=== PATIENT | female | born 1965 | race Caucasian/White ===

== ENCOUNTER → 2017-09-10 | Outpatient (CLI) | payer OTHER ==
[~2017-09-10] VITALS: Ht 167.6 cm; Wt 98.0 kg
[~2017-09-10] MED LIST: ALLEGRA ALLERG180 MG PO
--- NOTE | ~2017-09-10 | P ---
[facility] [place] [address] PROCEDURE REPORT Name: PAULETTE LIU Room #: REG [facility]#: [id number] Admission: 09/10/17 Attend Phys: Will Reyes MD Discharge: Date of : 63 Report #: [id number] THIS REPORT FOR: //name// CC: Will Martinez DO BRIEF HISTORY: The patient is a 52-year-old old woman that has a history of juvenile polyps removed as a child. She also has history of colon adenomas and a brother had colon cancer at age 50. PREOPERATIVE DIAGNOSES: History of colon polyps and family history of colon cancer. POSTOPERATIVE DIAGNOSES: 1. Multiple colon polyps. 2. Moderate sigmoid diverticulosis coli. 3. Internal hemorrhoids. MEDICATIONS: Deep sedation with propofol per anesthesia. SPECIMENS: 1. Polyp from splenic flexure. 2. Polyp from proximal descending colon. 3. Polyp from 40 cm. ESTIMATED BLOOD LOSS: 3 mL. PROCEDURE: Colonoscopy to cecum and terminal ileum with snare polypectomy. FINDINGS: Prior to propofol sedation, the procedure of colonoscopy discussed with the patient as well as potential risks, benefits, and complications. She indicates she understands and desires to proceed. With the patient in left lateral decubitus position, digital examination was completed, which revealed no abnormalities. Subsequently, the [employer] video colonoscope was introduced into the rectum, advanced under direct vision to the cecum. The cecum was identified by the ileocecal valve and the appendiceal orifice. I was able to visualize the distal segment of terminal ileum, which was inspected and noted to be unremarkable. At that point, the scope was slowly withdrawn and careful circumferential views were obtained. As we withdrew the scope, the prep was noted to be excellent. The mucosa was within normal limits, normal vascular pattern, and normal light reflex. She had a long and tortuous colon. As we withdrew the scope, no abnormalities were noted until the splenic flexure was reached, at which point a 1-cm flat polyp was seen and removed by cold snare polypectomy. As we withdrew the scope, there was a large adherent clump of mucus in the proximal descending colon. In this area, there was [facility] [address] [place] [address] PROCEDURE REPORT Name: PAULETTE LIU Room #: REG [facility].#: [id number] Admission: 09/10/17 Attend Phys: Will Reyes MD Discharge: Date of : 63 Report #: [id number] approximately a 12-14 mm flat polyp with thick covering mucus. This was removed with 2 passes with a cold polypectomy snare. The scope was further withdrawn and at 40 cm, a 6 mm x 6 mm flat polyp was seen and removed by cold snare polypectomy. In the sigmoid colon, there was noted to be moderately severe diverticular disease without endoscopic evidence of diverticulitis. As the scope was withdrawn, no additional abnormalities were noted until the scope was withdrawn in the distal rectum. Upon retroflexion, several small internal hemorrhoids were seen. The scope was withdrawn. The patient tolerated the procedure well. CONDITION OF THE PATIENT UPON DISCHARGE: Following the procedure, the patient drowsy, aroused, and conversant and will be discharged home when fully ambulatory. INSTRUCTIONS TO THE PATIENT AND FAMILY AT THE TIME OF DISCHARGE: The patient with findings of multiple polyps as noted above. I suspect these are serrated adenomas. Given the fact that she has a family history of colon cancer and prior history of colon polyps, I would suggest she should return in 3 years for followup colonoscopy. We will follow up on the path report and make additional recommendations as needed. Last colonoscopy was about 5 years ago. Withdrawal time from the cecum was 23 minutes 28 seconds. <ELECTRONICALLY SIGNED> By: Will Reyes MD 09/11/17 1656 [id number] Will Reyes MD /nt
--- NOTE | ~2017-09-10 | S ---
[facility] [address] [place] [address] SURGICAL PATH RPT PROCEDURE Name: PAULETTE LIU Room #: REG [facility].#: [id number] Admission: 09/10/17 Date of : 63 Discharge: Report #: [id number] Path Case #: [id number] PATHOLOGY REPORT DRAFT COLLECTION DATE: 09/10/2017 RECEIVED DATE: 09/11/2017 SPECIMEN(S) RECEIVED: A.Polyp at splenic flexure B.Polyp at proximal descending colon C.Polyp at 40 cm
== END | disposition home or self-care (01) ==
LOC: GI 08:27
DX: Z09 Encounter for follow-up examination after completed treatment for conditions other than malignant neoplasm (principal); Z86.010 Personal history of colon polyps; D12.3 Benign neoplasm of transverse colon; D12.4 Benign neoplasm of descending colon; D12.5 Benign neoplasm of sigmoid colon; K57.30 Diverticulosis of large intestine without perforation or abscess without bleeding; K64.8 Other hemorrhoids; Z80.0 Family history of malignant neoplasm of digestive organs
CPT/HCPCS: 62110; 62900